=== PATIENT | female | born 1980 | race Caucasian/White ===

== ENCOUNTER 2023-12-18 06:20 | Day surgery (SDC) | payer OTHER ==
[~2023-12-18] VITALS: Ht 165.1 cm; Wt 125.3 kg
[~2023-12-18 06:20] MED LIST: CRUTCH4 USE; HYDACE5 PO; MOTRIN PRN; SULTRIDS PO
[2023-12-18] MEDS ORDERED: CeFAZolin Sodium 2,000 MG VIAL ONE (06:27)
[2023-12-18] MEDS ORDERED: NS 0 ML IV ONE (06:28)
--- NOTE | 2023-12-18 07:02 | NUR ---
12/18/23 0702 Marcela Harris 0.15 MG OF EPI (1MG/ML) ADDED TO ROPIVACAINE 0.5% (150MG/30ML) TO MAKE ROPIVACAINE 0.5% WITH EPI 1:200,000 ON FIELD
[2023-12-18] MEDS ORDERED: Ropivacaine 0.5% HCl/Pf 5 MG/ML 20ML VIAL INJ ONE ×2 (07:04)
[2023-12-18] MEDS ORDERED: Midazolam HCl 1MG / ML 2ML Vial ONE ×2 (07:05→12:23)
[2023-12-18] MEDS ORDERED: FentaNYL Citrate 50 MCG/ML 2 ML Injection ONE ×2 (07:05→09:15)
[2023-12-18] MEDS ORDERED: CeFAZolin Sodium 3,000 MG in NS 100 ML IV SCH (07:05)
[2023-12-18] MEDS ORDERED: propofoL 20 ML IV ONE ×2 (07:05→07:34)
[2023-12-18] MEDS ORDERED: EPINEPhrine HCl 1 MG/ML 1ML Amp XX ONE ×2 (07:05)
[2023-12-18] MEDS ORDERED: Lactated Ringer's 1,000 ML IV ONE ×4 (07:18→12:40)
[2023-12-18] MEDS ORDERED: Ondansetron HCl 2 MG / ML 2ML Vial ONE ×2 (07:28→10:27)
[2023-12-18] MEDS ORDERED: Dexamethasone Sod Phos 10 MG/ML 1ML VIAL ONE (07:28)
[2023-12-18] MEDS ORDERED: Ketorolac Tromethamine 30mg Vial ONE (07:55)
[2023-12-18] MEDS ORDERED: Sugammadex Sodium 200 MG/2ML SDV (100 MG/ML) ONE (07:55)
[2023-12-18] MEDS ORDERED: Rocuronium Bromide 10 MG/ML 5ML Injection IV ONE ×2 (08:05→08:06)
--- NOTE | 2023-12-18 09:26 | NUR ---
12/18/23 0926 Alistair Lucas PT SHIVERING IN SDU. SOME B/P'S NOT ACCURATE.
[2023-12-18] MEDS ORDERED: OxyCODONE 5 mg/Acetamin 325 mg TABLET ONE (09:58)
[2023-12-18] MEDS ORDERED: Metoclopramide HCl 5MG / ML 2ML Vial ONE (10:42)
[2023-12-18] MEDS ORDERED: Droperidol 5 mg/2 ml Vial ONE (11:14)
--- NOTE | 2023-12-18 13:20 | NUR ---
12/18/23 1320 Alistair Lucas PT REPORTED NAUSEA AND APPEARED TO BECOME HYPERTENSIVE (SEE VSS) FOLLOWING PERCOCET ADMINISTRATION. PT DENIED CP, SOB, HEADACHE, VISUAL DISTURBANCE, SOB, AND OTHER CARDIAC SYMPTOMS. SHE WAS INITIALLY MEDICATED WITH ZOFRAN AND REGLAN (SEE EMAR) WITH LITTLE TO NO EFFECT. DR. MENJIVAR CONSULTED AND WROTE PERSCRIPTION FOR NORCO AT HOME, WHICH WAS GIVEN TO PT. DR. MONTERO WAS CONSULTED AT APPROXAMATELY 1105 AND ORDER DROPERIDOL (SEE ANESTHESIA ORDERS) . PT STATED SHE FELT "A LITTLE BETTER" AFTER TWO DOSES OF DROPERIDOL. DR. MONTERO CONULTED AGAIN AND ORDERED VERSED (SEE ANESTHESIA ORDERS). VERSED WAS ADMINISTERED AND B/P CUFF SWITCHED TO LEFT RADIAL. B/P DROPPED WITHIN 20% OF BASELINE AND NAUSEA RESOLVED AFTERWARD. DR. MONTERO APPROVED D/C. PT DENIED PAIN AND NAUSEA UPON D/C.
== END 2023-12-18 12:43 | disposition home or self-care (01) ==
LOC: ORSCSDS 06:20 → ORD 02-11 15:00
PROVIDERS: Obstetrics & Gynecology
PROC: 0UT74ZZ Resection of Bilateral Fallopian Tubes, Percutaneous Endoscopic Approach (ICD-10-PCS; principal; 2023-12-18 07:30)
PROC: 0UPD7HZ Removal of Contraceptive Device from Uterus and Cervix, Via Natural or Artificial Opening (ICD-10-PCS; principal; 2023-12-18 07:30)
PROC: 0U5B8ZZ Destruction of Endometrium, Via Natural or Artificial Opening Endoscopic (ICD-10-PCS; principal; 2023-12-18 07:30)
DX: N92.0 Excessive and frequent menstruation with regular cycle (principal); Z30.2 Encounter for sterilization; N94.6 Dysmenorrhea, unspecified; N71.9 Inflammatory disease of uterus, unspecified; E66.01 Morbid (severe) obesity due to excess calories; Z68.42 Body mass index [BMI] 45.0-49.9, adult
CPT/HCPCS: 88302; 88305; A9270; J0171; J0690; J1100; J1790; J1885; J2250; J2405; J2704; J2765; J2795; J3010; J7120